=== PATIENT | male | born 1960 | race Hispanic/Latino ===

== ENCOUNTER 2020-12-03 07:48 | Observation (INO) | payer OTHER ==
--- NOTE | 2020-12-03 08:46 | RAD REPORT ---
EXAM DESCRIPTION: CT - Ct Stroke Brain Wo Cont - 12/03/2020 8:35 am CLINICAL HISTORY: APHASIA COMPARISON: No comparisons TECHNIQUE: Axial 5 millimeter thick images of the head were obtained without IV contrast. All CT scans are performed using dose optimization technique as appropriate and may include automated exposure control or mA/KV adjustment according to patient size. FINDINGS: No intracranial hemorrhage, mass, or cerebral edema. No acute peripheral cortical based in farction identified. Approximately 3 x 1 centimeter sized area of diminished attenuation is present i nvolving the left-side head of the caudate and lentiform nucleus. There is extension into a small por tion of the deep periventricular white matter of the left frontal lobe and involving the posterior as pect of the external capsule and subcortical tissue at the insular cortex. Infarction in this region could trigger aphasia No other areas of infarction suspected. Patient has no significant degree of atrophy or chronic ische michael change. A few arterial calcifications are present. No extra-axial fluid collections. Jackson matter -white matter differentiation is preserved. Visualized portions of the mastoid air cells, paranasal sinuses, and orbits are unremarkable. Findings telephoned to Dr. Maier 8:42 a.m. IMPRESSION: Subacute nonhemorrhagic infarction involving the left basal ganglia, posterior aspect of the internal and external capsules, and a small amount of deep periventricular white matter left fro ntal lobe. An infarction in this region could trigger aphasia.
[2020-12-03 08:54] LABS: Absolute Lymphocytes (CBC) 2.1 K/uL (0.7-4.9); Basophils % 0.8 % (0-1.3); Hematocrit 40.2 % (39.6-49.0); RBC Red Blood Cell Count 4.66 M/uL (4.33-5.43)
[2020-12-03 09:02] LABS: Protime INR 0.98
--- NOTE | 2020-12-03 09:22 | ER ---
Nurse's Notes [facility] Name: Aime Huffman Age: 60 yrs Sex: Male : 1960 Arrival Date: 12/03/2020 Time: 07:50 Bed 6 Private MD: Diagnosis: Subacute nonhemorrhagic infaction: left basal ganglia, posterior internal/external capsule, left frontal lobe Presentation: 12/03 08:06 Chief complaint: Patient states: "I think I might have had a stroke yesterday. I was jd3 sitting at the computer and couldn't remember my passwords and was having a hard time speaking and remembering things. It started around this time yesterday.". Coronavirus screen: At this time, the client does not indicate any symptoms associated with coronavirus-19. Ebola Screen: Patient negative for fever greater than or equal to 101.5 degrees Fahrenheit, and additional compatible Ebola Virus Disease symptoms. Initial Sepsis Screen: Does the patient meet any 2 criteria? No. Patient's initial sepsis screen is negative. Does the patient have a suspected source of infection? No. Patient's initial sepsis screen is negative. Risk Assessment: Do you want to hurt yourself or someone else? Patient reports no desire to harm self or others. Onset of symptoms was December 02, 2020. 08:06 Method Of Arrival: Ambulatory j 08:06 Acuity: ANTOINETTE 2 jd3 Historical: - Allergies: 08:09 No Known Allergies; jd3 - Home Meds: 08:09 Metformin Oral [Active]; Bystolic oral oral [Active]; jd3 - PMHx: 08:09 Diabetes - NIDDM; Hypertension; jd3 - Immunization history:: Adult Immunizations up to date. - Social history:: Smoking status: Patient denies any tobacco usage or history of. Screenin:12 Abuse screen: Denies threats or abuse. Nutritional screening: No deficits noted. jd3 Tuberculosis screening: No symptoms or risk factors identified. VAN Screening: Arm Drift: Patient shows no arm weakness. Patient is VAN negative. Fall Risk Ambulatory Aid- None/Bed Rest/Nurse Assist (0 pts). Gait- Normal/Bed Rest/Wheelchair (0 pts) Mental Status- Oriented to own ability (0 pts). Total Hamilton Fall Scale indicates No Risk (0-24 pts). 08:13 The patient has not been NPO before screening. The patient is currently on the jd3 following diet: regular The patient is alert, able to follow commands. The patient does not exhibit slurred or garbled speech The patient is not exhibiting difficulty speaking. The patient does not exhibit difficulty understanding words. The patient is able to swallow own secretions with no drooling or need for suction. Patient tolerated one teaspoon of water. No drooling, immediate coughing, gurgling, or clearing of the throat was noted. The patient tolerated 90mL of water. No drooling, immediate coughing, gurgling, or clearing of the throat was noted. The patient passed the bedside swallow screening. Oral medications may be given as ordered. Contact Physician for further diet orders. Provider notified of bedside swallow screening results: Alberto Maier MD. Assessment: 08:09 General: Appears in no apparent distress. comfortable, Behavior is calm, cooperative, jd3 appropriate for age, anxious. Pain: Denies pain. Neuro: Level of Consciousness is awake, alert, obeys commands, Oriented to person, place, time, situation, Cashier Checker are equal bilaterally Moves all extremities. Full function Gait is steady, Speech is normal, Facial symmetry appears normal, Intact Reports problem remembering things, feels like he is slurring his speech.. Cardiovascular: Denies chest pain, Capillary refill < 3 seconds Patient's skin is warm and dry. Respiratory: Airway is patent Respiratory effort is even, unlabored, Respiratory pattern is regular, symmetrical. GI: No signs and/or symptoms were reported involving the gastrointestinal system. : No signs and/or symptoms were reported regarding the genitourinary system. EENT: No signs and/or symptoms were reported regarding the EENT system. Derm: Skin is intact, Skin is dry, Skin is normal, Skin temperature is warm. Musculoskeletal: Circulation, motion, and sensation intact. Range of motion: intact in all extremities. 09:15 Reassessment: Patient appears in no apparent distress at this time. Patient and/or jd3 family updated on plan of care and expected duration. Pain level reassessed. Patient is alert, oriented x 3, equal unlabored respirations, skin warm/dry/pink. 10:18 Reassessment: Patient appears in no apparent distress at this time. Patient and/or jd3 family updated on plan of care and expected duration. Pain level reassessed. Patient is alert, oriented x 3, equal unlabored respirations, skin warm/dry/pink. 11:16 Reassessment: Patient appears in no apparent distress at this time. No changes from [facility] previously documented assessment. Patient and/or family updated on plan of care and expected duration. Pain level reassessed. Patient is alert, oriented x 3, equal unlabored respirations, skin warm/dry/pink. awaiting admission. 12:17 Reassessment: Patient appears in no apparent distress at this time. No changes from [facility] previously documented assessment. Patient and/or family updated on plan of care and expected duration. Pain level reassessed. Patient is alert, oriented x 3, equal unlabored respirations, skin warm/dry/pink. 13:15 Reassessment: Patient appears in no apparent distress at this time. No changes from [facility] previously documented assessment. Patient and/or family updated on plan of care and expected duration. Pain level reassessed. Patient is alert, oriented x 3, equal unlabored respirations, skin warm/dry/pink. Patient denies pain at this time. 14:08 Reassessment: Patient appears in no apparent distress at this time. Patient and/or [facility] family updated on plan of care and expected duration. Pain level reassessed. Patient is alert, oriented x 3, equal unlabored respirations, skin warm/dry/pink. charting continued in [facility]. 14:45 Reassessment: Unsuccessful attempt to call report to admitting nurse. Nurse to call aa5 back for report. . Vital Signs: 08:00 BP 150 / 80; Pulse 58; Resp 16; Temp 98.9(O); Pulse Ox 97% on R/A; Weight 88.45 kg; em1 Height 5 ft. 10 in. (177.80 cm); Pain 0/10; 10:18 BP 160 / 76; Pulse 55; Resp 17 S; Pulse Ox 97% on R/A; jd3 11:17 BP 146 / 78; Pulse 53; Resp 16 S; Pulse Ox 96% on R/A; jd3 12:17 BP 150 / 75; Pulse 52; Resp 18 S; Pulse Ox 97% on R/A; jd3 13:16 BP 147 / 75; Pulse 56; Resp 16 S; Pulse Ox 99% on R/A; jd3 14:08 BP 143 / 75; Pulse 51; Resp 17 S; Pulse Ox 97% on R/A; jd3 15:07 BP 158 / 78; Pulse 55; Resp 16 S; Pulse Ox 97% on R/A; jd3 08:00 Body Mass Index 27.98 (88.45 kg, 177.80 cm) em1 NIH Stroke Scale Scores: 08:12 NIHSS Score: 0 jd3 ED Course: 07:50 Patient arrived in ED. ag5 07:56 Alberto Maier MD is Attending Physician. kdr 08:00 Damian Toney RN is Primary Nurse. jd3 08:08 Triage completed. jd3 08:09 Arm band placed on. jd3 08:12 Patient has correct armband on for positive identification. Bed in low position. Call jd3 light in reach. Side rails up X 1. Pulse ox on. NIBP on. 08:34 CT Stroke Brain w/o Contrast In Process Unspecified. EDMS 08:37 Stroke CXR 1 View In Process Unspecified. EDMS 08:48 Inserted saline lock: 20 gauge in right antecubital area, using aseptic technique. jd3 Blood collected. 08:49 EKG done, by ED staff, reviewed by Alberto Maier MD. em1 09:18 Jamison Wyatt MD is Hospitalizing Provider. kdr 09:42 Augie Prater is Hospitalizing Provider. kdr 14:15 No provider procedures requiring assistance completed. Patient admitted, IV remains in jd3 place. 15:00 Repeat troponin drawn and sent to lab. aa5 Administered Medications: 10:17 Drug: foLIC Acid 1 mg Route: PO; jd3 11:15 Follow up: Response: No adverse reaction jd3 10:18 Drug: Aspirin 325 mg Route: PO; jd3 11:15 Follow up: Response: No adverse reaction jd3 Outcome: 09:21 Decision to Hospitalize by Provider. kdr 14:15 Admitted to ER Hold. Please see [facility] for further documentation. jd3 14:15 Condition: stable 14:15 Instructed on the need for admit. 15:31 Admitted to Med/surg room 415, Report called to Tavo OCONNOR jd3 15:47 Patient left the ED. jd3 NIH Stroke Scale - NIH Stroke Score Date: 12/03/2020 Time: 08:12 Total Score = 0 1a. Level of Consciousness (LOC) - 0(Alert) 1b. Level of Consciousness (LOC) (Year \\T\\ Age) - 0(Both) 1c. LOC Commands (Open \\T\\ Closes Eyes/Automatic Tire Tester) - 0(Both) 2. Best Gaze (Lateral Gaze Paresis) - 0(Normal) 3. Visual Field Loss - 0(No visual loss) 4. Facial Palsy - 0(Normal) 5a. Left Arm: Motor (10-second hold) - 0(No drift) 5b. Right Arm: Motor (10-second hold) - 0(No drift) 6a. Left Leg: Motor (5-second hold - always test supine) - 0(No drift) 6b. Right Leg: Motor (5-second hold - always test supine) - 0(No drift) 7. Limb Ataxia (finger/nose \\T\\ heel/longoria - test with eyes open) - 0(Absent) 8. Sensory Loss (pinprick arms/legs/face) - 0(Normal) 9. Best Language: Aphasia (description/naming/reading) - 0(No aphasia) 10. Dysarthria (speech clarity - read or repeat words) - 0(Normal) 11. Extinction and Inattention (visual/tactile/auditory/spatial/personal) - 0(No abnormality) Initials: jd3 Signatures: Dispatcher [employer] EDMS Alberto Maier MD MD kdr Martinez, Eric em1 Rose Mary Jesus, RN RN aa5 Damian Toney RN RN jd3 Laura Hamlin 5
--- NOTE | 2020-12-03 09:22 | EDPHYS ---
Physician Documentation [facility] Name: Amie Huffman Age: 60 yrs Sex: Male : 1960 Arrival Date: 12/03/2020 Time: 07:50 Bed 6 Private MD: ED Physician Alberto Maier HPI: 12/03 10:46 This 60 yrs old Male presents to ER via Ambulatory with complaints of kdr Disoriented, Altered Mental Status, Aphasia. 10:47 The patient presents to the emergency department with a speech or higher order brain kdr function problem, aphasia, that is mild. Onset: The symptoms/episode began/occurred suddenly, yesterday, Yesterday morning. Context: occurred at home, occurred while the patient was working, The patient states that he initially was having difficulty remembering his computer passwords. Then he began to have difficulty speaking. Associated signs and symptoms: Pertinent positives: Pertinent negatives: altered mental status, chills, dizziness, fever, headache, nausea, neck stiffness, paresthesias, seizure, syncope, near-syncope, blurred vision, double vision, visual field changes, loss of vision, weakness. Severity of symptoms: At their worst the symptoms were mild in the emergency department the symptoms are unchanged. Patient's baseline: Neuro: alert and fully oriented, Motor: no deficits, Ambulation: walks without assistance, Speech: normal. Current symptoms: expressive aphasia. The patient has not experienced similar symptoms in the past. The patient has not recently seen a physician. Historical: - Allergies: 08:09 No Known Allergies; jd3 - Home Meds: 08:09 Metformin Oral [Active]; Bystolic oral oral [Active]; jd3 - PMHx: 08:09 Diabetes - NIDDM; Hypertension; jd3 - Immunization history:: Adult Immunizations up to date. - Social history:: Smoking status: Patient denies any tobacco usage or history of. ROS: 10:47 Constitutional: Negative for fever, chills, and weight loss, Eyes: Negative for injury, kdr pain, redness, and discharge, ENT: Negative for injury, pain, and discharge, Neck: Negative for injury, pain, and swelling, Cardiovascular: Negative for chest pain, palpitations, and edema, Respiratory: Negative for shortness of breath, cough, wheezing, and pleuritic chest pain, Abdomen/GI: Negative for abdominal pain, nausea, vomiting, diarrhea, and constipation, Back: Negative for injury and pain, : Negative for injury, bleeding, discharge, and swelling, MS/Extremity: Negative for injury and deformity, Skin: Negative for injury, rash, and discoloration, Psych: Negative for depression, anxiety, suicide ideation, homicidal ideation, and hallucinations, Allergy/Immunology: Negative for hives, rash, and allergies, Endocrine: Negative for neck swelling, polydipsia, polyuria, polyphagia, and marked weight changes, Hematologic/Lymphatic: Negative for swollen nodes, abnormal bleeding, and unusual bruising. 10:47 Neuro: Positive for speech changes, Negative for altered mental status, dizziness, gait disturbance, headache, hearing loss, loss of consciousness, numbness, seizure activity, syncope, near syncope, tingling, tremor, visual changes, weakness. Exam: 09:22 ECG was reviewed by the Attending Physician. kdr 10:47 Constitutional: This is a well developed, well nourished patient who is awake, alert, kdr and in no acute distress. Head/Face: Normocephalic, atraumatic. Eyes: Pupils equal round and reactive to light, extra-ocular motions intact. Lids and lashes normal. Conjunctiva and sclera are non-icteric and not injected. Cornea within normal limits. Periorbital areas with no swelling, redness, or edema. Neck: Trachea midline, no thyromegaly or masses palpated, and no cervical lymphadenopathy. Supple, full range of motion without nuchal rigidity, or vertebral point tenderness. No Meningismus. Chest/axilla: Normal chest wall appearance and motion. Nontender with no deformity. No lesions are appreciated. Cardiovascular: Regular rate and rhythm with a normal S1 and S2. No gallops, murmurs, or rubs. Normal PMI, no JVD. No pulse deficits. Respiratory: Lungs have equal breath sounds bilaterally, clear to auscultation and percussion. No rales, rhonchi or wheezes noted. No increased work of breathing, no retractions or nasal flaring. Abdomen/GI: Soft, non-tender, with normal bowel sounds. No distension or tympany. No guarding or rebound. No evidence of tenderness throughout. Back: No spinal tenderness. No costovertebral tenderness. Full range of motion. Skin: Warm, dry with normal turgor. Normal color with no rashes, no lesions, and no evidence of cellulitis. MS/ Extremity: Pulses equal, no cyanosis. Neurovascular intact. Full, normal range of motion. Psych: Awake, alert, with orientation to person, place and time. Behavior, mood, and affect are within normal limits. 10:47 Neuro: Exam negative for Orientation: is normal, Mentation: is normal, appropriate for stated age, Memory: appropriate for stated age, Cranial nerves: no acute changes, Speech is Expressive aphasia. Cerebellar function: is grossly normal, is grossly normal based on the patient's age, Motor: is normal, Sensation: is normal, Gait: appropriate for age. Vital Signs: 08:00 BP 150 / 80; Pulse 58; Resp 16; Temp 98.9(O); Pulse Ox 97% on R/A; Weight 88.45 kg; em1 Height 5 ft. 10 in. (177.80 cm); Pain 0/10; 10:18 BP 160 / 76; Pulse 55; Resp 17 S; Pulse Ox 97% on R/A; jd3 11:17 BP 146 / 78; Pulse 53; Resp 16 S; Pulse Ox 96% on R/A; jd3 12:17 BP 150 / 75; Pulse 52; Resp 18 S; Pulse Ox 97% on R/A; jd3 13:16 BP 147 / 75; Pulse 56; Resp 16 S; Pulse Ox 99% on R/A; jd3 14:08 BP 143 / 75; Pulse 51; Resp 17 S; Pulse Ox 97% on R/A; jd3 15:07 BP 158 / 78; Pulse 55; Resp 16 S; Pulse Ox 97% on R/A; jd3 08:00 Body Mass Index 27.98 (88.45 kg, 177.80 cm) em1 NIH Stroke Scale Scores: 08:12 NIHSS Score: 0 jd3 MDM: 09:21 Patient medically screened. kdr 10:52 Data reviewed: vital signs, nurses notes, lab test result(s), radiologic studies. kdr Counseling: I had a detailed discussion with the patient and/or guardian regarding: the historical points, exam findings, and any diagnostic results supporting the discharge/admit diagnosis, lab results, radiology results, the need for further work-up and treatment in the hospital. Physician consultation: Augie Prater regarding admission, patient's condition, and will see patient in inpatient room, shortly. Physician consultation: Urbano Patel MD regarding consult, patient's condition, and will see patient in inpatient room, later today, would like medications started, Aspirin, folic acid and statin. 12/03 08:21 Order name: Basic Metabolic Panel; Complete Time: 09:17 kdr 12/03 08:21 Order name: CBC with Diff; Complete Time: 09:13 kdr 12/03 08:21 Order name: Protime (+inr); Complete Time: 09:13 kdr 12/03 08:21 Order name: Ptt, Activated; Complete Time: 09:13 kdr 12/03 08:21 Order name: ETOH Level; Complete Time: 09:14 kdr 12/03 08:21 Order name: UDS [facility] 12/03 08:21 Order name: CT Stroke Brain w/o Contrast; Complete Time: 09:14 kdr 12/03 08:21 Order name: Stroke CXR 1 View [facility] 12/03 08:34 Order name: Glucose, Ancillary Testing [facility] 12/03 11:44 Order name: SARS-COV-2 RT PCR [facility] 12/03 14:49 Order name: RAD [facility] 12/03 15:19 Order name: US [facility] 12/03 15:26 Order name: Troponin I [facility] 12/03 08:21 Order name: EKG; Complete Time: 08:22 kdr 12/03 08:21 Order name: Accucheck; Complete Time: 08:27 kdr 12/03 08:21 Order name: Cardiac monitoring; Complete Time: 08:47 kdr 12/03 08:21 Order name: EKG - Nurse/Tech; Complete Time: 08:48 kdr 12/03 08:21 Order name: IV Saline Lock; Complete Time: 08:48 kdr 12/03 08:21 Order name: Labs collected and sent; Complete Time: 08:47 kdr 12/03 08:21 Order name: NPO; Complete Time: 08:27 kdr 12/03 08:21 Order name: O2 Per Protocol; Complete Time: 08:27 kdr 12/03 08:21 Order name: O2 Sat Monitoring; Complete Time: 08:27 kdr 12/03 08:21 Order name: Stroke Swallow Screen; Complete Time: 08:27 kdr 12/03 10:53 Order name: CONS Physician Consult EDMS EC:22 Rate is 58 beats/min. Rhythm is regular, Sinus bradycardia with No ectopy. QRS [place] is kdr Normal. UT interval is normal. QRS interval is normal. QT interval is normal. Clinical impression: NSR w/ Non-specific ST/T Changes and Sinus bradycardia. Administered Medications: 10:17 Drug: foLIC Acid 1 mg Route: PO; jd3 11:15 Follow up: Response: No adverse reaction jd3 10:18 Drug: Aspirin 325 mg Route: PO; jd3 11:15 Follow up: Response: No adverse reaction jd3 Disposition: 12/03/20 09:21 Hospitalization ordered by Augie Prater for Observation. Preliminary diagnosis is Subacute nonhemorrhagic infaction: left basal ganglia, posterior internal/external capsule, left frontal lobe. - Bed requested for Telemetry/MedSurg (observation). - Status is Observation. jd3 - Condition is Fair. - Problem is new. - Symptoms are unchanged. NIH Stroke Scale - NIH Stroke Score Date: 12/03/2020 Time: 08:12 Total Score = 0 1a. Level of Consciousness (LOC) - 0(Alert) 1b. Level of Consciousness (LOC) (Year \T\ Age) - 0(Both) 1c. LOC Commands (Open \T\ Closes Eyes/Housing Relocation) - 0(Both) 2. Best Gaze (Lateral Gaze Paresis) - 0(Normal) 3. Visual Field Loss - 0(No visual loss) 4. Facial Palsy - 0(Normal) 5a. Left Arm: Motor (10-second hold) - 0(No drift) 5b. Right Arm: Motor (10-second hold) - 0(No drift) 6a. Left Leg: Motor (5-second hold - always test supine) - 0(No drift) 6b. Right Leg: Motor (5-second hold - always test supine) - 0(No drift) 7. Limb Ataxia (finger/nose \T\ heel/longoria - test with eyes open) - 0(Absent) 8. Sensory Loss (pinprick arms/legs/face) - 0(Normal) 9. Best Language: Aphasia (description/naming/reading) - 0(No aphasia) 10. Dysarthria (speech clarity - read or repeat words) - 0(Normal) 11. Extinction and Inattention (visual/tactile/auditory/spatial/personal) - 0(No abnormality) Initials: jd3 Signatures: Dispatcher [employer] EDMS Imelda Mclean, RN RN Alberto Maier MD MD [facility] Erika Flores, RN Damian Stephens RN RN jd3 Corrections: (The following items were deleted from the chart) 09:42 09:21 Hospitalization Ordered by Jamison Wyatt MD for Observation. Preliminary kdr diagnosis is Subacute nonhemorrhagic infaction: left basal ganglia, posterior internal/external capsule, left frontal lobe. Bed requested for Telemetry/MedSurg (observation). Status is Observation. Condition is Fair. Problem is new. Symptoms are unchanged. kdr 10:17 09:44 CORONAVIRUS+MR.LAB.BRZ ordered. EDKY EDMS 14:21 09:42 12/03/2020 09:21 Hospitalization Ordered by Augie Prater for iw Observation. Preliminary diagnosis is Subacute nonhemorrhagic infaction: left basal ganglia, posterior internal/external capsule, left frontal lobe. Bed requested for Telemetry/MedSurg (observation). Status is Observation. Condition is Fair. Problem is new. Symptoms are unchanged. kdr 14:40 14:21 12/03/2020 09:21 Hospitalization Ordered by Augie Prater for dw Observation. Preliminary diagnosis is Subacute nonhemorrhagic infaction: left basal ganglia, posterior internal/external capsule, left frontal lobe. Bed requested for [facility] ER HOLD. Status is Observation. Condition is Fair. Problem is new. Symptoms are unchanged. 14:41 14:40 12/03/2020 09:21 Hospitalization Ordered by Augie Prater for dw Observation. Preliminary diagnosis is Subacute nonhemorrhagic infaction: left basal ganglia, posterior internal/external capsule, left frontal lobe. Bed requested for Telemetry/MedSurg (observation). Status is Observation. Condition is Fair. Problem is new. Symptoms are unchanged. 15:47 14:41 12/03/2020 09:21 Hospitalization Ordered by Augie Prater for jd3 Observation. Preliminary diagnosis is Subacute nonhemorrhagic infaction: left basal ganglia, posterior internal/external capsule, left frontal lobe. Bed requested for Telemetry/MedSurg (observation). Status is Observation. Condition is Fair. Problem is new. Symptoms are unchanged.
--- NOTE | 2020-12-03 09:25 | RAD REPORT ---
EXAM DESCRIPTION: RAD - Chest Single View - 12/03/2020 8:40 am CLINICAL HISTORY: AMS/Speech difficulty, Stroke protocol chest film COMPARISON: Portable June 2011 TECHNIQUE: AP portable chest image was obtained 12/03/2020 8:40 am . FINDINGS: Lungs are clear. Heart and vasculature are normal. No measurable pleural effusion and no p neumothorax. No acute bony abnormality seen. No acute aortic findings suspected. IMPRESSION: No acute cardiopulmonary process. No significant change from comparison study.
[2020-12-03] MEDS ORDERED: ASPIRIN 325 MG TAB ONE (10:23)
[2020-12-03] MEDS ORDERED: FOLIC ACID 1 MG TABLET ONE (10:23)
--- NOTE | 2020-12-03 11:13 | P.HP ---
Certification for Inpatient Patient admitted to: Observation Practitioner: I am a practitioner with admitting privileges, knowledge of patient current condition, hospital course, and medical plan of care. Services: Services provided to patient in accordance with Admission requirements found in Title 42 Section 412.3 of the Code of Federal Regulations Patient History Date of Service: 12/03/20 Reason for admission: Slurred speech History of Present Illness: 60-year-old gentleman with a history of hypertension and diabetes presented to the emergency department with a complaint of sudden onset of slurred speech, forgetfulness and difficulty finding words. Patient denied any headache. He denied any weakness in his arms or legs. Stroke protocol was initiated in the ED. CT head done in the ED reported subacute infarct in the left basal ganglia, posterior aspect of the internal and external capsules. Patient stated his speech was better and almost resolved by the time I saw him in the ED for ex amination. Chest x-ray shows no acute changes. EKG demonstrated sinus bradycardia, no ischemic changes. Dr. Patel was informed who recommended stroke medical management. Patient is placed under observation for further monitoring and management. - Past Medical/Surgical History Diabetic: Yes -: Hypertension -: Diabetes - Family History Mother -: Diabetes - Social History Smoking Status: Never smoker Alcohol use: Yes CD- Drugs: No Place of Residence: Home Review of Systems Other: Patient denied any visual disturbance, he denied any trouble swallowing, he denied any chest pain. Except as documented, all other systems reviewed and negative. Physical Examination - Physical Exam General: Alert, In no apparent distress, Oriented x3 HEENT: Atraumatic, Normocephalic, PERRLA, Mucous membr. moist/pink, EOMI Neck: Supple, JVD not distended Respiratory: Clear to auscultation bilaterally, Normal air movement Cardiovascular: No edema, Regular rate/rhythm, Normal S1 S2, No murmurs Capillary refill: <2 Seconds Gastrointestinal: Normal bowel sounds, Soft and benign, Non-distended, No tenderness Musculoskeletal: No swelling, No tenderness Integumentary: No rashes, No erythema Neurological: Normal speech, Normal strength at 5/5 x4 extr, Cranial nerves 3-12 intact Lymphatics: No axilla or inguinal lymphadenopathy - Studies Laboratory Data (last 24 hrs) 12/03/20 08:45: PT 11.3, INR 0.98, APTT 30.1 12/03/20 08:45: WBC 5.40, Hgb 13.6, Hct 40.2, Plt Count 212 12/03/20 08:45: Sodium 141, Potassium 4.0, BUN 15, Creatinine 0.89, Glucose 169 H Assessment and Plan - Problems (Diagnosis) (1) Acute CVA (cerebrovascular accident) Current Visit: Yes Status: Acute (2) Hypertension Current Visit: Yes Status: Acute (3) DM type 2 (diabetes mellitus, type 2) Current Visit: Yes Status: Acute - Plan Place under observation. Obtain MRI Obtain echocardiogram and carotid Doppler Check lipid profile Start aspirin 162 mg daily. Folic acid. Lipitor 40 mg daily. Speech therapy to evaluate. PT to evaluate. Neurology consult. - Advance Directives Does patient have a Living Will: No Does patient have a Durable POA for Healthcare: No
[2020-12-03] MEDS: NA CHLORIDE 0.9% 1,000 ML IV SCH (14:05)
[2020-12-03] MEDS ORDERED: ONDANSETRON 4 MG/2 ML VIAL IV PRN (14:05)
[2020-12-03] MEDS: INSULIN -REGULAR HUMAN 50 UNIT/0.5 ML ML SQ SCH ×3 (14:05→21:00)
[2020-12-03] MEDS ORDERED: ACETAMINOPHEN 500 MG TAB PO PRN (14:05)
--- NOTE | 2020-12-03 14:46 | RAD REPORT ---
EXAM DESCRIPTION: Chastity Winkler And Abdirahman (2 Views)12/03/2020 2:22 pm CLINICAL HISTORY: CVA COMPARISON: 2010 FINDINGS: The lungs appear clear of acute infiltrate. The heart is normal size. Calcified granuloma right lung IMPRESSION: No acute abnormalities displayed
--- NOTE | 2020-12-03 15:18 | RAD REPORT ---
EXAM DESCRIPTION: USCarotid Artery Bilateral12/03/2020 3:01 pm CLINICAL HISTORY: cva COMPARISON: None FINDINGS: The velocity of the right internal carotid artery equals 86 cm/sec. The right ICA/CCA rati o.9 The velocity of the left internal carotid artery equals 70 cm/sec. The left ICA/CCA ratio .7 Mild plaque is present within the carotid arteries. The vertebral arteries demonstrate antegrade flow IMPRESSION: Mild plaque within the carotid arteries without evidence of a hemodynamically significan t stenosis NASCET criteria used. Mild 0-49% stenosis Moderate 50-69% stenosis Severe 70-99% stenosis
[2020-12-03] MEDS ORDERED: INFLUENZA VACCINE (for 3y+) 0.5 ML DOSE IMVAC ONE (17:00)
--- NOTE | 2020-12-03 20:04 | CON ---
Reason For Consultation: Consultation called because of stroke. History Of Present Illness: Mr. Huffman is a 60-year-old right-handed patient who was COVID p ositive and hypertension, diabetes, and presented to [facility] early on 12/03/2020, with del valle dden onset of slurred speech, forgetfulness and difficulty of finding words. Symptom onset was well beyond the window for tissue plasminogen activator and his CT scan of the head did identify a subacut e infarct in the left basal ganglia including the posterior aspect of the internal capsule and photograph developer al capsules. By the time patient came to [facility], his symptoms had largely resolved desp ite his CT scan findings. This included slurred speech, some difficulty of finding words and problem s with his orientation. The patient was admitted for stroke workup. He was placed on aspirin 81 mg daily, folic acid 1 mg daily, Lovenox 40 mg subcutaneously daily, Lipitor 40 mg at bedtime. His bloo d sugars were controlled. His carotid Doppler study did identify mild plaque in the carotid arteries without evidence of hemodynamically significant stenosis. Brain MRI with MRA of the head and neck a re pending and his echocardiogram is pending. Past Medical History: As indicated. Social History: Drinks alcohol regularly. Denies tobacco use or IV drug use. Family History: Positive for diabetes mellitus in mother. Social History: None. Review of Systems: He denies any recent fevers, chills, nausea, vomiting, myalgias, arthralgias, headache, weight change , rash, any psychiatric issues or gastrointestinal issues. Physical Examination: Vital Signs: Blood pressure 167/79, pulse 56, respiratory rate 16, temperature 97.6, O2 saturation 9 9% room air. Weight 194 pounds. General: The patient is resting comfortably in bed. He is in no acute distress. HEENT: He is normocephalic, atraumatic. Sclerae anicteric. Oropharynx is pink and moist. Neck: Supple. Chest: Clear. Heart: Regular. Extremities: Show no edema, cyanosis, or clubbing. Neurological: He is alert and oriented to situation and time. He follows commands appropriately. H e has no cranial nerve deficits. No weakness in the upper and lower extremities with full strength 5 /5. Sensation intact in the upper and lower extremities. Coordination intact in the upper and lower extremities. His reflexes are symmetric at around 2+ bilaterally. His gait, he has good stance and stride. He was cleared by speech with bedside swallowing being negative. His NIH Stroke Scale is 0 at this point. Laboratory Studies: Complete blood count with differential is completely normal. Coagulation panel is normal. Chemistries show glucose elevated ranging 115 to 177. Chloride slightly elevated at 108. Troponin 1 is negative. Calcium normal at 9.4. Toxicology screen is negative. He is COVID-19 pos itive. Assessment: Mr. Huffman is a 60-year-old patient with multiple stroke risk factors including COVID pos itivity, hypertension, diabetes mellitus, who has had a subacute stroke in the left basal ganglia inc luding the internal and external capsules and he does have a small amount of big periventricular whit e matter ischemic changes in the left frontal lobe. Despite the stroke, he has clinically returned t o normal. Plan: 1.Aspirin 81 mg daily, folic acid 1 mg daily. He is going to continue Lipitor 40 mg at bedtime. Co ntinue Lovenox for DVT prophylaxis. 2.We will follow up the patient's brain MRI with MRA of head and neck. 3.He was instructed on the factors to reduce additional strokes such as changes in diet, hydration, exercise, and rest. After his complete workup and after discharge, he should follow up in Dr. Patel's clinic 1 month later. ROHAN/ALISE Voice ID: [id number] Report ID: [id number]
[2020-12-03] MEDS ORDERED: ATORVASTATIN 40 MG TAB PO SCH (21:00)
[2020-12-04 03:23] LABS: Barbiturates NEGATIVE (NEGATIVE); Benzodiazepines NEGATIVE (NEGATIVE); Cocaine NEGATIVE (NEGATIVE); METHAMPHETAM NEGATIVE (NEGATIVE); Methadone NEGATIVE (NEGATIVE); Opiates NEGATIVE (NEGATIVE); Phencyclidine NEGATIVE (NEGATIVE); THC Cannibis NEGATIVE (NEGATIVE)
[2020-12-04] MEDS: NA CHLORIDE 0.9% 1,000 ML IV SCH (03:29)
[2020-12-04 03:54] LABS: Protime INR 0.99
[2020-12-04 03:54] LABS: Absolute Lymphocytes (CBC) 2.4 K/uL (0.7-4.9); Basophils % 0.8 % (0-1.3); Hematocrit 38.4 % (39.6-49.0); Lymphocytes % 50.4 % (15.3-44.8); MPV 8.2 fL (7.6-11.3); RBC Red Blood Cell Count 4.37 M/uL (4.33-5.43)
[2020-12-04 04:23] LABS: Magnesium 2.4 mg/dL (1.8-2.4); Phosphorus 3.5 mg/dL (2.5-4.9); Potassium 4.3 mmol/L (3.5-5.1); Thyroid Stimulating Hormone 1.27 uIU/mL (0.360-3.740)
[2020-12-04] MEDS: INSULIN -REGULAR HUMAN 50 UNIT/0.5 ML ML SQ SCH ×3 (07:30→16:30)
[2020-12-04] MEDS ORDERED: FOLIC ACID 1 MG TABLET PO SCH (09:00)
[2020-12-04] MEDS ORDERED: ASPIRIN EC 81 MG TAB PO SCH (09:00)
[2020-12-04] MEDS ORDERED: ENOXAPARIN 40 MG/0.4 ML SQ SCH (09:00)
--- NOTE | 2020-12-04 09:48 | RAD REPORT ---
EXAM DESCRIPTION: MRI - Brain W/Wo Cont - 12/04/2020 9:15 am CLINICAL HISTORY: Acute CVA Headache, drowsiness, CVA symptomology COMPARISON: MRA Head Wo Cont dated 12/04/2020; Ct Stroke Brain Wo Cont dated 12/03/2020; Carotid Arter y Bilateral dated 12/03/2020 TECHNIQUE: Multi-sequence, multiplanar MR imaging of the brain was performed with contrast. FINDINGS: No intracranial hemorrhage, hydrocephalus, or extra-axial fluid collection. No edema or sh ift of midline structures. No intracranial mass. 21 x 14 mm acute nonhemorrhagic CVA is seen in the l eft basal ganglia. Additional smaller 6 x 5 mm nonhemorrhagic acute CVA is seen along the more golf professional ior aspect of the left basal ganglia/external capsule as well. The midline structures are normally formed. Mastoid air cells and paranasal sinuses are clear. Post-contrast images show no abnormal enhancement to suggest tumor or infection. IMPRESSION: Nonhemorrhagic left basal ganglia acute CVA is as detailed, largest measuring 21 x 14 mm . No pathologic post-contrast enhancement suspected.
--- NOTE | 2020-12-04 09:54 | RAD REPORT ---
EXAM DESCRIPTION: MRI - MRA Neck W/Wo Cont - 12/04/2020 9:16 am CLINICAL HISTORY: Acute CVA Headache, drowsiness, CVA COMPARISON: MRA Head Wo Cont dated 12/04/2020; Ct Stroke Brain Wo Cont dated 12/03/2020; Carotid Arter y Bilateral dated 12/03/2020 FINDINGS: Contrast enhance 2D [id number] MR angiography of the neck vessels was performed. A left aortic arch is noted. Both subclavian arteries and common carotid arteries are widely patent. Mild narrowing of both carotid bulbs is seen without a significant carotid stenosis identified. Both vertebral arteries are patent. There is mild atheromatous narrowing of the distal left vertebral lakeisha ry. IMPRESSION: No significant carotid stenosis is identified.
[2020-12-04 10:52] VITALS: O2SAT 97
--- NOTE | 2020-12-04 11:41 | RAD REPORT ---
EXAM DESCRIPTION: MRI - MRA Head Wo Cont - 12/04/2020 9:16 am CLINICAL HISTORY: Acute CVA CVA COMPARISON: Ct Stroke Brain Wo Cont dated 12/03/2020 FINDINGS: 3D noncontrast [id number] MR angiography of the [place] was performed. No aneurysm, flow-limiting stenosis or vascular malformation is seen. Mild narrowing is seen of the d istal left vertebral artery. The visualized dural venous sinuses appear patent. IMPRESSION: No significant flow abnormality of the [place] is identified.
--- NOTE | 2020-12-04 11:46 | P.DS ---
Admission Date: 12/03/20 Discharge Date: 12/04/20 Disposition: ROUTINE DISCHARGE Discharge Condition: FAIR Reason for Admission: Slurred speech Consultations: Neurology-Dr. Patel. - Problems (1) Acute CVA (cerebrovascular accident) Current Visit: Yes Status: Acute (2) Hypertension Current Visit: Yes Status: Acute (3) DM type 2 (diabetes mellitus, type 2) Current Visit: Yes Status: Acute (4) COVID-19 Current Visit: Yes Status: Acute Brief History of Present Illness: 60-year-old gentleman with a history of hypertension and diabetes presented to the emergency department with a complaint of sudden onset of slurred speech, forgetfulness and difficulty finding words. Patient denied any headache. He denied any weakness in his arms or legs. Stroke protocol was initiated in the ED. CT head done in the ED reported subacute infarct in the left basal ganglia, posterior aspect of the internal and external capsules. Patient stated his speech was better and almost resolved by the time I saw him in the ED for examination. Chest x-ray shows no acute changes. EKG demonstrated sinus bradycardia, no ischemic changes. Dr. Patel was informed who recommended stroke medical management. Patient was placed under observation for further monitoring and management. Noted patient tested positive for COVID 19. Hospital Course: Troponin trended came back negative. Patient neurologic symptoms resolved in the ED. MRI of the brain done confirmed acute CVA in the left basal ganglia. Carotid Doppler was unremarkable. Echocardiogram is pending. MRA of the head and may also unremarkable. Patient was placed on aspirin 162 mg daily, folic acid and Lipitor. His lipid profile is elevated, LDL up to 148. Patient has been asymptomatic during the hospitalization. He has seen evaluated by neurology-Dr. Patel recommend follow up with him in 1 month. He has been asymptomatic from the COVID 19 infection. Patient is deemed clinically stable for discharge. Vital Signs/Physical Exam: Temp Pulse Resp BP Pulse Ox 99 F 57 18 162/74 H 96 12/04/20 07:53 12/04/20 07:53 12/04/20 07:53 12/04/20 07:53 12/04/20 07:53 General: Alert, In no apparent distress, Oriented x3 HEENT: Mucous membr. moist/pink Neck: Supple, JVD not distended Cardiovascular: No edema, Regular rate/rhythm Gastrointestinal: Soft and benign, Non-distended Musculoskeletal: No swelling Integumentary: No rashes Neurological: Normal speech, Normal strength at 5/5 x4 extr Laboratory Data at Discharge: WBC 4.70 K/uL (4.3-10.9) 12/04/20 03:03 Hgb 12.8 g/dL (13.6-17.9) L 12/04/20 03:03 Hct 38.4 % (39.6-49.0) L 12/04/20 03:03 Plt Count 201 K/uL (152-406) 12/04/20 03:03 PT 11.4 SECONDS (9.5-12.5) 12/04/20 03:00 INR 0.99 12/04/20 03:00 APTT 30.1 SECONDS (24.3-36.9) 12/03/20 08:45 Sodium 145 mmol/L (136-145) 12/04/20 03:03 Potassium 4.3 mmol/L (3.5-5.1) 12/04/20 03:03 BUN 14 mg/dL (7-18) 12/04/20 03:03 Creatinine 0.93 mg/dL (0.55-1.3) 12/04/20 03:03 Glucose 135 mg/dL (74-106) H 12/04/20 03:03 Phosphorus 3.5 mg/dL (2.5-4.9) 12/04/20 03:03 Magnesium 2.4 mg/dL (1.8-2.4) 12/04/20 03:03 Troponin I < 0.02 ng/mL (0.0-0.045) 12/03/20 18:09 Triglycerides 279 mg/dL (<150) H 12/04/20 03:03 Cholesterol 247 mg/dL (<200) H 12/04/20 03:03 HDL Cholesterol 43 mg/dL (40-60) 12/04/20 03:03 Cholesterol/HDL Ratio 5.74 12/04/20 03:03 Home Medications: Metformin ER [Glucophage ER*] 1,000 mg PO DAILY 12/03/20 Nebivolol HCl [Bystolic*] 20 mg PO DAILY 12/03/20 Aspirin [Aspirin EC 81 MG] 162 mg PO DAILY #60 tablet.dr 12/04/20 Atorvastatin Calcium [Lipitor] 40 mg PO BEDTIME #30 tab 12/04/20 Clopidogrel Bisulfate [Plavix] 75 mg PO DAILY #30 tablet 12/04/20 Folic Acid 1 mg PO DAILY #30 tablet 12/04/20 New Medications: Aspirin [Aspirin EC 81 MG] 162 mg PO DAILY #60 tablet. Folic Acid 1 mg PO DAILY #30 tablet Atorvastatin Calcium [Lipitor] 40 mg PO BEDTIME #30 tab Clopidogrel Bisulfate [Plavix] 75 mg PO DAILY #30 tablet Diet: ADA Activity: Ad marcelo Followup: Guillermo Feng DO, DO [Primary Care Provider] - 1-2 Weeks Urbano Patel MD [ASSOCIATE-ACTIVE - CAN ADMIT] - (within 1 month.)
[2020-12-04 16:16] VITALS: BP 148/73; TEMP 97.1
--- NOTE | 2020-12-05 08:45 | ECHO ---
HEIGHT: 521 ft 7.84 in WEIGHT: 194 lb 15.982 oz DATE OF STUDY: 12/04/[address]: vitor garnica 2-DIMENSIONAL: YES M.MODE: YES DOPPLER: YES COLOR FLOW: YES TDS: PORTABLE: DEFINITY: BUBBLE STUDY: DIAGNOSIS: STROKE CARDIAC HISTORY: CATHERIZATION: SURGERY: PROSTHETIC VALVE: PACEMAKER: MEASUREMENTS (cm) DIASTOLIC (NORMALS) SYSTOLIC (NORMALS) IVSd 1.1 (0.6-1.2) LA Diam 4.0 (1.9-4.0) LVEF 65% LVIDd 4.3 (3.5-5.7) LVIDs 2.8 (2.0-3.5) %FS 35% LVPWd 1.2 (0.6-1.2) Ao Diam 3.0 (2.0-3.7) 2 DIMENSIONAL ASSESSMENT: RIGHT ATRIUM: NORMAL LEFT ATRIUM: NORMAL RIGHT VENTRICLE: NORMAL LEFT VENTRICLE: NORMAL TRICUSPID VALVE: NORMAL MITRAL VALVE: NORMAL PULMONIC VALVE: NORMAL AORTIC VALVE: NORMAL PERICARDIAL EFFUSION: NONE AORTIC ROOT: NORMAL LEFT VENTRICULAR WALL MOTION: NORMAL DOPPLER/COLOR FLOW: NORMAL COMMENTS: NORMAL LEFT VENTRICULAR EJECTION FRACTION 55-60%. NORMAL WALL MOTION. MILD AORTIC VALVE CALCIFICATION. NO AORTIC STENOSIS. TECHNOLOGIST: DOREEN EDGAR
== END 2020-12-04 17:55 | disposition home or self-care (01) ==
LOC: ER 07:48 → ERHOLD 10:51 → 4TH 15:28
PROVIDERS: ADMIT Internal Medicine; ATTEND Internal Medicine
DX: I63.9 Cerebral infarction, unspecified (principal); U07.1 COVID-19; I10 Essential (primary) hypertension; E11.9 Type 2 diabetes mellitus without complications; R29.700 NIHSS score 0
CPT/HCPCS: 93005; 93306; 85025 ×2; 80048 ×2; 36415; 80320; 83735; 84100; 85610 ×2; 80061; 82947 ×6; 80307 ×8; 85730; 85652; 84443; 84484 ×2; 70450; 71045; 71046; 93880; 70553; 70544; 70549; 92610; 97161; 94760 ×3; 99285; U0003; A9577; J1650; J7030 ×2; G0378 ×3

== ENCOUNTER 2021-01-05 10:57 | Observation (INO) | payer OTHER ==
[2021-01-05 11:30] LABS: Absolute Lymphocytes (CBC) 2.3 K/uL (0.7-4.9); Basophils % 0.6 % (0-1.3); Hematocrit 40.3 % (39.6-49.0); Lymphocytes % 39.1 % (15.3-44.8); MPV 8.4 fL (7.6-11.3); RBC Red Blood Cell Count 4.55 M/uL (4.33-5.43)
[2021-01-05 11:43] LABS: Protime INR 0.92
--- NOTE | 2021-01-05 11:46 | RAD REPORT ---
EXAM DESCRIPTION: CT - Ct Stroke Brain Wo Cont - 01/05/2021 11:12 am CLINICAL HISTORY: Aphasia;Confused COMPARISON: Ct Stroke Brain Wo Cont dated 12/03/2020 TECHNIQUE: Axial 5 millimeter thick images of the head were obtained without IV contrast. All CT scans are performed using dose optimization technique as appropriate and may include automated exposure control or mA/KV adjustment according to patient size. FINDINGS: No intracranial hemorrhage is present. No edema or shift of midline structures. Approximat lisa 2 x 1.5 centimeter area of decreased attenuation is present in the deep periventricular white mat ter left frontal lobe near the basal ganglia. There is ill-defined low-density that continues into th e external capsule and insular cortex. Nonhemorrhagic acute/subacute CVA is most likely. This locatio n would be a good explanation for aphasia symptoms. No other areas of suspected infarction. No cortic al edema or sulcal effacement. Ventricles are normal. No significant atrophy or chronic ischemic stewart ges identifiable. No extra-axial fluid collections. Jackson matter-white matter differentiation is pres erved. Visualized portions of the mastoid air cells, paranasal sinuses, and orbits are unremarkable. Findings telephoned to Natalio Zuniga in the emergency department 11:15 a.m. IMPRESSION: Nonhemorrhagic acute/ subacute CVA deep periventricular white matter left frontal lobe e xtending to the basal ganglia. External capsular and insular cortex involvement may be present as wel l. As clinical findings warrant, MR imaging could be performed to confirm suspected CVA and to evaluate full extent.
[2021-01-05] MEDS ORDERED: ASPIRIN 81 MG CHEWABLE TABLET ONE (11:47)
[2021-01-05] MEDS ORDERED: FOLIC ACID 5 MG/ML VIAL ONE (11:48)
--- NOTE | 2021-01-05 11:48 | EDPHYS ---
Physician Documentation [facility] Name: Aime Huffman Age: 60 yrs Sex: Male : 1960 Arrival Date: 01/05/2021 Time: 10:58 Bed 3 Private MD: Guillermo Feng H ED Physician Gerry Fritz HPI: 01/05 11:20 This 60 yrs old Male presents to ER via Ambulatory with complaints of S/S of jmm Possible Stroke. 11:20 The patient's problem is reported as weakness, in the right upper extremity, in the jmm right lower extremity. Onset: The symptoms/episode began/occurred gradually, 3 day(s) ago. Duration: The episodes are intermittent. The symptoms are alleviated by nothing. The symptoms are aggravated by nothing. Associated signs and symptoms: Pertinent negatives: chest pain, shortness of breath. This is a 60 year old male with a history of DM, HTN that presents to the ED with complaints of right sided weakness and difficulty with speech beginning this past Tuesday. patient does have a history of a recent cva 1 month ago. . Historical: - Allergies: 11:18 No Known Allergies; ca1 - PMHx: 11:18 Diabetes - NIDDM; Hypertension; ca1 - Immunization history:: Flu vaccine is up to date. - Social history:: Smoking status: Patient denies any tobacco usage or history of. ROS: 11:20 Constitutional: Negative for fever, chills, and weight loss, Cardiovascular: Negative jmm for chest pain, palpitations, and edema, Respiratory: Negative for shortness of breath, cough, wheezing, and pleuritic chest pain. 11:20 Neuro: Positive for speech changes, weakness. 11:20 All other systems are negative. Exam: 11:20 CT study not indicated or reported. Reason for not performing CT: CVA, non hemorrhagic jmm 11:20 Constitutional: This is a well developed, well nourished patient who is awake, alert, and in no acute distress. Head/Face: atraumatic. Eyes: EOMI, no conjunctival erythema appreciated ENT: Moist Mucus Membranes Neck: Trachea midline, Supple Chest/axilla: Normal chest wall appearance and motion. Cardiovascular: Regular rate and rhythm. No edema appreciated Respiratory: Normal respirations, no respiratory distress appreciated Abdomen/GI: Non distended, soft Back: Normal ROM Skin: General appearance color normal 11:20 Musculoskeletal/extremity: ROM: intact in all extremities. 11:20 Skin: Appearance: Color: normal in color. 11:20 Neuro: Orientation: is normal, Mentation: is normal, Memory: is normal. Vital Signs: 11:12 BP 141 / 69; Pulse 85; Resp 16 S; Temp 97.1(TE); Pulse Ox 96% on R/A; Weight 86.18 kg ca1 (R); Height 5 ft. 10 in. (177.80 cm) (R); Pain 0/10; 12:00 BP 137 / 80; Pulse 78; Resp 18; Pulse Ox 99% on R/A; ph 13:30 BP 141 / 72; Pulse 80; Resp 18; Pulse Ox 97% on R/A; ph 14:30 BP 122 / 64; Pulse 73; Resp 16; Pulse Ox 98% on R/A; ph 15:30 BP 140 / 68; Pulse 74; Resp 16; Pulse Ox 97% on R/A; ph 16:30 BP 132 / 70; Pulse 74; Resp 18; Pulse Ox 97% on R/A; ph 17:30 BP 129 / 70; Pulse 75; Resp 16; Temp 97.0; Pulse Ox 98% on R/A; ph 11:12 Body Mass Index 27.26 (86.18 kg, 177.80 cm) ca1 NIH Stroke Scale Scores: 11:20 NIHSS Score: 0 ph 11:20 NIHSS Score: 1 [facility] MDM: 11:13 Patient medically screened. [facility] 11:45 Data reviewed: vital signs, nurses notes. Counseling: I had a detailed discussion with [facility] the patient and/or guardian regarding: the historical points, exam findings, and any diagnostic results supporting the discharge/admit diagnosis, radiology results, the need for further work-up and treatment in the hospital. ED course: I discussed the patient with Dr. Patel and Dr. Prater whom accepted the patient for admission. TPA not given, Out of window. . 01/05 11:12 Order name: Basic Metabolic Panel [facility] 01/05 11:12 Order name: CBC with Diff; Complete Time: 11:39 [facility] 01/05 11:12 Order name: LFT's [facility] 01/05 11:12 Order name: Magnesium; Complete Time: 13:46 [facility] 01/05 11:12 Order name: NT PRO-BNP; Complete Time: 13:46 [facility] 01/05 11:12 Order name: PT-INR; Complete Time: 13:46 [facility] 01/05 11:07 Order name: CT Stroke Brain w/o Contrast; Complete Time: 11:47 ca1 01/05 11:12 Order name: Troponin (emerg Dept Use Only); Complete Time: 13:46 [facility] 01/05 11:13 Order name: Basic Metabolic Panel; Complete Time: 13:46 [facility] 01/05 11:13 Order name: Liver (Hepatic) Function; Complete Time: 13:46 [facility] 01/05 11:26 Order name: Glucose, Ancillary Testing [facility] 01/05 13:45 Order name: COVID-19 : Document "Date of Symptom Onset" if Symptomatic. 01/05 14:24 Order name: CORONAVIRUS [facility] 01/05 15:18 Order name: SARS-COV-2 RT PCR; Complete Time: 15:21 [facility] 01/05 11:12 Order name: XRAY Chest (1 view); Complete Time: 13:46 [facility] 01/05 11:12 Order name: EKG; Complete Time: 11:13 [facility] 01/05 11:12 Order name: Cardiac monitoring; Complete Time: 11:50 [facility] 01/05 11:12 Order name: EKG - Nurse/Tech; Complete Time: 11:50 [facility] 01/05 11:12 Order name: IV Saline Lock; Complete Time: 11:22 [facility] 01/05 11:12 Order name: Labs collected and sent; Complete Time: 11:22 [facility] 01/05 11:12 Order name: O2 Per Protocol; Complete Time: 11:22 [facility] 01/05 11:12 Order name: O2 Sat Monitoring; Complete Time: 11:22 [facility] 01/05 11:20 Order name: MRI - Brain Wo Cont; Complete Time: 14:08 [facility] 01/05 11:42 Order name: Echo without doppler (2D) [facility] 01/05 11:42 Order name: Carotid Artery Bilateral US; Complete Time: 13:46 [facility] Administered Medications: 11:40 Drug: Aspirin Chewable Tablet 324 mg Route: PO; ph 11:52 Follow up: Response: No adverse reaction ph 11:40 Drug: foLIC Acid 1 mg Route: IVPB; Site: right antecubital; ph 11:52 Follow up: Response: No adverse reaction; IV Status: Completed infusion ph 16:16 Not Given (Other Intervention Used): NS 0.9% 1000 ml IV at 1 bolus Per protocol; 1000 ph mL bolus Disposition: 01/06 09:45 Co-signature as Attending Physician, Gerry PEREZ I agree with the assessment and herberth plan of care. Disposition: 01/05/21 11:47 Hospitalization ordered by Augie Prater for Observation. Preliminary diagnosis is Cerebral infarction. - Bed requested for Telemetry/MedSurg (observation). - Status is Observation. ph - Condition is Stable. - Problem is new. - Symptoms are unchanged. NIH Stroke Scale - NIH Stroke Score Date: 01/05/2021 Time: 11:20 Total Score = 0 1a. Level of Consciousness (LOC) - 0(Alert) 1b. Level of Consciousness (LOC) (Year \\T\\ Age) - 0(Both) 1c. LOC Commands (Open \\T\\ Closes Eyes/Early Morning) - 0(Both) 2. Best Gaze (Lateral Gaze Paresis) - 0(Normal) 3. Visual Field Loss - 0(No visual loss) 4. Facial Palsy - 0(Normal) 5a. Left Arm: Motor (10-second hold) - 0(No drift) 5b. Right Arm: Motor (10-second hold) - 0(No drift) 6a. Left Leg: Motor (5-second hold - always test supine) - 0(No drift) 6b. Right Leg: Motor (5-second hold - always test supine) - 0(No drift) 7. Limb Ataxia (finger/nose \\T\\ heel/longoria - test with eyes open) - 0(Absent) 8. Sensory Loss (pinprick arms/legs/face) - 0(Normal) 9. Best Language: Aphasia (description/naming/reading) - 0(No aphasia) 10. Dysarthria (speech clarity - read or repeat words) - 0(Normal) 11. Extinction and Inattention (visual/tactile/auditory/spatial/personal) - 0(No abnormality) Initials: ph NIH Stroke Scale - NIH Stroke Score Date: 01/05/2021 Time: 11:20 Total Score = 1 1a. Level of Consciousness (LOC) - 0(Alert) 1b. Level of Consciousness (LOC) (Year \\T\\ Age) - 0(Both) 1c. LOC Commands (Open \\T\\ Closes Eyes/Early Morning) - 0(Both) 2. Best Gaze (Lateral Gaze Paresis) - 0(Normal) 3. Visual Field Loss - 0(No visual loss) 4. Facial Palsy - 1(Minor Paralysis) 5a. Left Arm: Motor (10-second hold) - 0(No drift) 5b. Right Arm: Motor (10-second hold) - 0(No drift) 6a. Left Leg: Motor (5-second hold - always test supine) - 0(No drift) 6b. Right Leg: Motor (5-second hold - always test supine) - 0(No drift) 7. Limb Ataxia (finger/nose \\T\\ heel/longoria - test with eyes open) - 0(Absent) 8. Sensory Loss (pinprick arms/legs/face) - 0(Normal) 9. Best Language: Aphasia (description/naming/reading) - 0(No aphasia) 10. Dysarthria (speech clarity - read or repeat words) - 0(Normal) 11. Extinction and Inattention (visual/tactile/auditory/spatial/personal) - 0(No abnormality) Initials: [facility] Signatures: Dispatcher [employer] Imelda Quan RN RN dw Anderson, Corey, MD MD cha Mickail, Joel, PA PA [facility] Lesly Rolle, ELVIN RN ph AcShira carlson RN RN ca1 Corrections: (The following items were deleted from the chart) 01/05 15:50 11:47 Hospitalization Ordered by Augie Prater for Observation. Preliminary diagnosis is Cerebral infarction. Bed requested for Telemetry/MedSurg (observation). Status is Observation. Condition is Stable. Problem is new. Symptoms are unchanged. [facility] 18:10 15:50 01/05/2021 11:47 Hospitalization Ordered by Augie Prater for ph Observation. Preliminary diagnosis is Cerebral infarction. Bed requested for Telemetry/MedSurg (observation). Status is Observation. Condition is Stable. Problem is new. Symptoms are unchanged. dw
--- NOTE | 2021-01-05 11:48 | ER ---
Nurse's Notes [facility] Name: Aime Huffman Age: 60 yrs Sex: Male : 1960 Arrival Date: 01/05/2021 Time: 10:58 Bed 3 Private MD: Guillermo Feng H Diagnosis: Cerebral infarction Presentation: 01/05 11:07 Acuity: ANTOINETTE 2 ca1 11:12 Chief complaint: Patient states: Today around 0900, started losing my balance, I feel ca1 disoriented and confused, I am having trouble speaking. These symptoms also started Tuesday and all day Tuesday. I was okay yesterday Tuesday then it started again this morning. VAN negative. No slurring. No facial droop noted. Coronavirus screen: Client denies travel out of the [place] in the last 14 days. At this time, the client does not indicate any symptoms associated with coronavirus-19. Ebola Screen: Patient negative for fever greater than or equal to 101.5 degrees Fahrenheit, and additional compatible Ebola Virus Disease symptoms Patient denies exposure to infectious person. Patient denies travel to an Ebola-affected area in the 21 days before illness onset. No symptoms or risks identified at this time. Initial Sepsis Screen: Does the patient meet any 2 criteria? No. Patient's initial sepsis screen is negative. Does the patient have a suspected source of infection? No. Patient's initial sepsis screen is negative. Risk Assessment: Do you want to hurt yourself or someone else? Patient reports no desire to harm self or others. Onset of symptoms was January 05, 2021 at 09:00. 11:12 Method Of Arrival: Ambulatory ca1 Triage Assessment: 11:18 The onset of the patients symptoms was January 05, 2021 at 09:00. ca1 Stroke Activation: Symptom onset < 3 hours Physician: Stroke Attending; Name: ; Notified At: ; Arrived At: Physician: Chief Stroke Resident; Name: ; Notified At: ; Arrived At: Physician: Stroke Resident; Name: ; Notified At: ; Arrived At: Physician: ED Attending; Name: ; Notified At: ; Arrived At: Physician: ED Resident; Name: ; Notified At: ; Arrived At: Historical: - Allergies: 11:18 No Known Allergies; ca1 - PMHx: 11:18 Diabetes - NIDDM; Hypertension; ca1 - Immunization history:: Flu vaccine is up to date. - Social history:: Smoking status: Patient denies any tobacco usage or history of. Screenin:25 Abuse screen: Denies threats or abuse. Denies injuries from another. Nutritional ph screening: No deficits noted. Tuberculosis screening: No symptoms or risk factors identified. Fall Risk None identified. Assessment: 11:04 Reassessment: Code stroke called overhead, pt taken to CT via stretcher by triage nurse.ph 11:18 Reassessment: Patient appears in no apparent distress at this time. JESUS Lance at bedside ph to assess pt. General: Appears in no apparent distress. comfortable, well groomed, Behavior is calm, cooperative, appropriate for age. Pain: Denies pain. Neuro: Level of Consciousness is awake, alert, obeys commands, Oriented to person, place, time, situation, Plate Painter are equal bilaterally Moves all extremities. Full function Speech is normal, Facial symmetry appears normal, Pupils are PERRLA, Intact Reports weakness and aphasia [employer]. Cardiovascular: Denies chest pain, Capillary refill < 3 seconds in bilateral fingers Patient's skin is warm and dry. Respiratory: Airway is patent Respiratory effort is even, unlabored. Derm: Skin is intact, is healthy with good turgor, Skin is pink, warm \\T\\ dry. Musculoskeletal: Circulation, motion, and sensation intact. Range of motion: intact in all extremities. 11:20 VAN Scoring: Arm Drift: Patients demonstrates NO arm weakness. Patient is VAN Negative. ph T-PA (Activase) Screening: Contraindications: Patient reports onset of signs and symptoms of stroke greater than 6 hours ago:. 11:35 Patient has been NPO before screening. The patient is alert, and able to follow ph commands. The patient does not exhibit slurred or garbled speech. The patient is not exhibiting difficulty speaking. The patient does not exhibit difficulty understanding words. The patient is able to swallow own secretions with no drooling or need for suction. Patient tolerated one teaspoon of water. No drooling, immediate coughing, gurgling, or clearing of the throat was noted. The patient tolerated 90mL of water. No drooling, immediate coughing, gurgling, or clearing of the throat was noted. The patient passed the bedside swallow screening. Oral medications may be given as ordered. Contact Physician for further diet orders. Provider notified of bedside swallow screening results: Natalio LEE. 11:45 Reassessment: Pt taken for MRI via wheelchair. ph 13:30 Reassessment: Patient appears in no apparent distress at this time. Patient and/or ph family updated on plan of care and expected duration. Pain level reassessed. Patient is alert, oriented x 3, equal unlabored respirations, skin warm/dry/pink. 15:15 Reassessment: Patient appears in no apparent distress at this time. Patient and/or ph family updated on plan of care and expected duration. Pain level reassessed. Patient is alert, oriented x 3, equal unlabored respirations, skin warm/dry/pink. 16:30 Reassessment: Patient appears in no apparent distress at this time. Patient and/or ph family updated on plan of care and expected duration. Pain level reassessed. Patient is alert, oriented x 3, equal unlabored respirations, skin warm/dry/pink. Pt resting comfortably, no complaints at this time. 17:30 Reassessment: Patient appears in no apparent distress at this time. Patient and/or ph family updated on plan of care and expected duration. Pain level reassessed. Patient is alert, oriented x 3, equal unlabored respirations, skin warm/dry/pink. Vital Signs: 11:12 BP 141 / 69; Pulse 85; Resp 16 S; Temp 97.1(TE); Pulse Ox 96% on R/A; Weight 86.18 kg ca1 (R); Height 5 ft. 10 in. (177.80 cm) (R); Pain 0/10; 12:00 BP 137 / 80; Pulse 78; Resp 18; Pulse Ox 99% on R/A; ph 13:30 BP 141 / 72; Pulse 80; Resp 18; Pulse Ox 97% on R/A; ph 14:30 BP 122 / 64; Pulse 73; Resp 16; Pulse Ox 98% on R/A; ph 15:30 BP 140 / 68; Pulse 74; Resp 16; Pulse Ox 97% on R/A; ph 16:30 BP 132 / 70; Pulse 74; Resp 18; Pulse Ox 97% on R/A; ph 17:30 BP 129 / 70; Pulse 75; Resp 16; Temp 97.0; Pulse Ox 98% on R/A; ph 11:12 Body Mass Index 27.26 (86.18 kg, 177.80 cm) ca1 NIH Stroke Scale Scores: 11:20 NIHSS Score: 0 ph 11:20 NIHSS Score: 1 [facility] ED Course: 10:58 Patient arrived in ED. am2 10:58 Guillermo Feng DO is Private Physician. am2 11:08 Triage completed. ca1 11:11 Natalio Briones PA is PHCP. [facility] 11:11 Gerry Fritz MD is Attending Physician. [facility] 11:11 CT Stroke Brain w/o Contrast In Process Unspecified. EDMS 11:15 Initial lab(s) drawn, by clinical lab clerk, sent to lab. Inserted saline lock: 20 gauge in right ph antecubital area, using aseptic technique. Blood collected. 11:18 Arm band placed on right wrist. ca1 11:21 Lesly Rolle, RN is Primary Nurse. ph 11:35 XRAY Chest (1 view) In Process Unspecified. EDMS 11:47 Augie Prater is Hospitalizing Provider. [facility] 11:51 Radiology exam delayed due to pt in MRI--ultrasound to be done after. aa4 11:51 Patient has correct armband on for positive identification. Placed in gown. Bed in low ph position. Call light in reach. Side rails up X 1. monitoring coordinator on. Pulse ox on. NIBP on. Door closed. Noise minimized. Warm blanket given. 11:58 MRI - Brain Wo Cont In Process Unspecified. EDMS 12:31 Carotid Artery Bilateral US In Process Unspecified. EDMS 13:53 COVID-19 : Document "Date of Symptom Onset" if Symptomatic. Sent. [facility] 13:53 COVID swab sent to lab. 5 18:01 No provider procedures requiring assistance completed. Patient admitted, IV remains in ph place. Administered Medications: 11:40 Drug: Aspirin Chewable Tablet 324 mg Route: PO; ph 11:52 Follow up: Response: No adverse reaction ph 11:40 Drug: foLIC Acid 1 mg Route: IVPB; Site: right antecubital; ph 11:52 Follow up: Response: No adverse reaction; IV Status: Completed infusion ph 16:16 Not Given (Other Intervention Used): NS 0.9% 1000 ml IV at 1 bolus Per protocol; 1000 ph mL bolus Outcome: 11:47 Decision to Hospitalize by Provider. jmm 18:00 Admitted to Tele accompanied by tech, via wheelchair, with chart. 18:00 Condition: good 18:00 Instructed on the need for admit. 18:10 Patient left the ED. NIH Stroke Scale - NIH Stroke Score Date: 01/05/2021 Time: 11:20 Total Score = 0 1a. Level of Consciousness (LOC) - 0(Alert) 1b. Level of Consciousness (LOC) (Year \\T\\ Age) - 0(Both) 1c. LOC Commands (Open \\T\\ Closes Eyes/Electrician [employer]) - 0(Both) 2. Best Gaze (Lateral Gaze Paresis) - 0(Normal) 3. Visual Field Loss - 0(No visual loss) 4. Facial Palsy - 0(Normal) 5a. Left Arm: Motor (10-second hold) - 0(No drift) 5b. Right Arm: Motor (10-second hold) - 0(No drift) 6a. Left Leg: Motor (5-second hold - always test supine) - 0(No drift) 6b. Right Leg: Motor (5-second hold - always test supine) - 0(No drift) 7. Limb Ataxia (finger/nose \\T\\ heel/longoria - test with eyes open) - 0(Absent) 8. Sensory Loss (pinprick arms/legs/face) - 0(Normal) 9. Best Language: Aphasia (description/naming/reading) - 0(No aphasia) 10. Dysarthria (speech clarity - read or repeat words) - 0(Normal) 11. Extinction and Inattention (visual/tactile/auditory/spatial/personal) - 0(No abnormality) Initials: NIH Stroke Scale - NIH Stroke Score Date: 01/05/2021 Time: 11:20 Total Score = 1 1a. Level of Consciousness (LOC) - 0(Alert) 1b. Level of Consciousness (LOC) (Year \\T\\ Age) - 0(Both) 1c. LOC Commands (Open \\T\\ Closes Eyes/Electrician [employer]) - 0(Both) 2. Best Gaze (Lateral Gaze Paresis) - 0(Normal) 3. Visual Field Loss - 0(No visual loss) 4. Facial Palsy - 1(Minor Paralysis) 5a. Left Arm: Motor (10-second hold) - 0(No drift) 5b. Right Arm: Motor (10-second hold) - 0(No drift) 6a. Left Leg: Motor (5-second hold - always test supine) - 0(No drift) 6b. Right Leg: Motor (5-second hold - always test supine) - 0(No drift) 7. Limb Ataxia (finger/nose \\T\\ heel/longoria - test with eyes open) - 0(Absent) 8. Sensory Loss (pinprick arms/legs/face) - 0(Normal) 9. Best Language: Aphasia (description/naming/reading) - 0(No aphasia) 10. Dysarthria (speech clarity - read or repeat words) - 0(Normal) 11. Extinction and Inattention (visual/tactile/auditory/spatial/personal) - 0(No abnormality) Initials: [facility] Signatures: Dispatcher [employer] Natalio Shay PA PA jmm Frazier, Amanda aa4 Lesly Rolle RN RN Kendal Harvey [facility] Vilma Beard 2 Shira Hurst RN RN ca1
[2021-01-05 11:55] LABS: ALT/SGPT 24 U/L (12-78); AST/SGOT 11 U/L (15-37); Albumin 4.2 g/dL (3.4-5.0); Alkaline Phosphatase 78 U/L (45-117); BUN Blood Urea Nitrogen 11 mg/dL (7-18); Bicarbonate 29 mmol/L (21-32); Bilirubin Direct 0.2 mg/dL (0-0.2); Bilirubin Total 0.9 mg/dL (0.2-1.0); Glucose Level 138 mg/dL (74-106); NT PRO-BNP 50 pg/mL (<125); Potassium 4.5 mmol/L (3.5-5.1); Protein, Total 7.7 g/dL (6.4-8.2); Sodium Level 142 mmol/L (136-145); Troponin (Emerg Dept Use Only) < 0.02 ng/mL (0.0-0.045)
--- NOTE | 2021-01-05 12:08 | RAD REPORT ---
EXAM DESCRIPTION: RAD - Chest Single View - 01/05/2021 11:35 am CLINICAL HISTORY: weakness, altered mental status, hypertension COMPARISON: December 03, 2020 TECHNIQUE: AP portable chest image was obtained 01/05/2021 11:35 am . FINDINGS: No peripheral mass consolidation. Interstitial pattern is similar to comparison. Cardiac s ilhouette is enlarged, slightly increased from comparison. No acute vascular engorgement. No measurab le pleural effusion and no pneumothorax. No acute bony abnormality seen. No acute aortic findings chhaya pected. IMPRESSION: No acute lung parenchymal process seen. Mild cardiomegaly similar or slightly increased from comparison. No acute failure or volume overload suspected.
--- NOTE | 2021-01-05 12:39 | RAD REPORT ---
EXAM DESCRIPTION: US - CP - 01/05/2021 12:31 pm CLINICAL HISTORY: CVA COMPARISON: MRA Neck W/Wo Cont dated 12/04/2020 TECHNIQUE: Real-time sonographic evaluation of bilateral carotid and vertebral systems was performed . Jackson scale and Doppler interrogation were performed with waveform tracing bilaterally. FINDINGS: Normal high resistance waveforms are noted in both external carotid arteries. The common c arotid arteries and internal carotid arteries show normal low resistance waveforms. Calcified plaques seen in the proximal aspect of the right internal carotid artery. No significant poonam shae narrowing identifiable. No other significant plaquing changes seen. Peak systolic and end diast olic velocity values and the ICA/CCA ratios are in the non-hemodynamically significant range. Antegrade flow seen in both vertebral arteries. Velocity values and ratios were recorded and are retained in the patient's imaging records. IMPRESSION: Calcified plaquing changes in the right internal carotid artery without significant daniele nal narrowing. Remainder the examination shows no significant plaquing change and no hemodynamically significant lamont noses.
--- NOTE | 2021-01-05 12:45 | P.HP ---
Certification for Inpatient Patient admitted to: Observation With expected LOS: <2 Midnights Practitioner: I am a practitioner with admitting privileges, knowledge of patient current condition, hospital course, and medical plan of care. Services: Services provided to patient in accordance with Admission requirements found in Title 42 Section 412.3 of the Code of Federal Regulations Patient History Date of Service: 01/05/21 Reason for admission: Right arm weakness History of Present Illness: 60-year-old gentleman with a history of diabetes recently hospitalized for dysarthria and diagnosed with acute CVA involving the left basal ganglia 1 month ago presented emergency department with a complaint of right sided weakness, more pronounced in the right arm, clumsiness in the right hand and unsteady gait. CT head done in the emergency department suggest acute versus subacute CVA in the periventricular deep white matter in the left frontal lobe extending to the left basal ganglia. EKG shows sinus rhythm. Initial troponin negative. Patient diagnosis acute CVA and hospitalized for further management. Allergies No Known Allergies Allergy (Verified 12/03/20 14:03) Home Medications: Metformin ER [Glucophage ER*] 1,000 mg PO DAILY 12/03/20 Nebivolol HCl [Bystolic*] 20 mg PO DAILY 12/03/20 Aspirin [Aspirin EC 81 MG] 162 mg PO DAILY #60 tablet. 12/04/20 Atorvastatin Calcium [Lipitor] 40 mg PO BEDTIME #30 tab 12/04/20 Clopidogrel Bisulfate [Plavix] 75 mg PO DAILY #30 tablet 12/04/20 Folic Acid 1 mg PO DAILY #30 tablet 12/04/20 - Past Medical/Surgical History Diabetic: Yes -: Hypertension -: Diabetes -: Hyperlipidemia -: Hypertension -: Diabetes - Family History Mother -: Diabetes - Social History Alcohol use: Yes CD- Drugs: No Caffeine use: Yes Review of Systems Other: Except as documented, all other systems reviewed and negative. Physical Examination - Physical Exam General: Alert, In no apparent distress, Oriented x3 HEENT: Atraumatic, Normocephalic, PERRLA, Mucous membr. moist/pink, EOMI, Sclerae nonicteric Neck: Supple, JVD not distended, No Thyromegaly Respiratory: Clear to auscultation bilaterally, Normal air movement Cardiovascular: No edema, Regular rate/rhythm, Normal S1 S2 Gastrointestinal: Normal bowel sounds, Soft and benign, Non-distended, No tenderness Musculoskeletal: No swelling, No tenderness Integumentary: No rashes, No erythema Neurological: Normal speech, Normal strength at 5/5 x4 extr, Cranial nerves 3-12 intact - Studies Laboratory Data (last 24 hrs) 01/05/21 11:14: PT 10.6, INR 0.92 01/05/21 11:14: WBC 5.90, Hgb 13.2 L, Hct 40.3, Plt Count 216 01/05/21 11:14: Sodium 142, Potassium 4.5, BUN 11, Creatinine 0.77, Glucose 138 H, Magnesium 2.0, Total Bilirubin 0.9, AST 11 L, ALT 24, Alkaline Phosphatase 78 Assessment and Plan - Problems (Diagnosis) (1) Acute CVA (cerebrovascular accident) Current Visit: No Status: Acute (2) DM type 2 (diabetes mellitus, type 2) Current Visit: No Status: Acute (3) Hypertension Current Visit: No Status: Acute - Plan Place under observation. Patient include noncompliant with medications. Start aspirin 162 mg daily. Add Plavix Folic acid, Lipitor. Neurology Consult. Permissive hypertension. PT evaluation given unsteady. No problem with speech or swallow. Insulin sliding scale for glucose management. Patient is COVID negative. He was positive 1 month ago. - Advance Directives Does patient have a Living Will: No Does patient have a Durable POA for Healthcare: No
--- NOTE | 2021-01-05 14:01 | RAD REPORT ---
EXAM DESCRIPTION: MRI - Brain Wo Cont - 01/05/2021 1:38 pm CLINICAL HISTORY: right sided weakness COMPARISON: Brain W/Wo Cont dated 12/04/2020; Ct Stroke Brain Wo Cont dated 01/05/2021T Stroke protoc ol study January 05 TECHNIQUE: Sagittal T1-weighted images were obtained along with axial PD, heavily T2-weighted and T2 -FLAIR images. Axial DWI and ADC mapping sequences were also obtained along with coronal heavily T2-w eighted images. FINDINGS: At the time of the Stroke protocol image review and telephone report to the emergency depa rtment, the patient's prior imaging study and history or not available. The signal abnormality in the deep left frontal lobe periventricular white matter that extends inferi cam along the lateral margin of the basal ganglia into the external capsule was present on the MRI imaging as an area of acute infarction. There is currently scattered T1 hyperintense signal c ommonly seen with aging of a CVA. Diffusion-weighted imaging shows hypointense and hyperintense signa l. ADC mapping shows a hyperintense signal pattern. No definitive acute stroke component seen. There is hyperintense T2/IR signal in this area of aging infarction. Signal pattern is as expected for 1 mo nth aging of an infarction. No mass effect or edema. Minimal chronic ischemic changes are present. Atrophy is minimal as well. Ventricles are normal. Ther e is no edema or shift of midline structures. No extra-axial fluid collections. Jackson-matter/white mat ter junction is preserved. Signal voids are seen as a normal finding in the major intracranial vessel s. Mastoid air cells and paranasal sinuses are clear. IMPRESSION: An acute infarction is not identified and no suspicious hemorrhage or mass identifiable. Signal abnormality is present in the deep periventricular white matter left frontal lobe extending in feriorly into the lateral aspect of the basal ganglia and external capsule. This is the correlate to the recent CT finding. Current signal abnormality represents the expected aging of the infarction seen 1 month earlier.
[2021-01-05] MEDS ORDERED: ONDANSETRON 4 MG/2 ML VIAL IV PRN (19:15)
[2021-01-05] MEDS ORDERED: ACETAMINOPHEN 500 MG TAB PO PRN (19:15)
[2021-01-05] MEDS ORDERED: GLUCAGON 1 MG/VIAL IM PRN (19:49)
[2021-01-05] MEDS ORDERED: D50W 25 GM/50 ML SYRINGE IV PRN (19:49)
[2021-01-05] MEDS: INSULIN -REGULAR HUMAN 50 UNIT/0.5 ML ML SQ SCH (20:59)
[2021-01-05] MEDS: NA CHLORIDE 0.9% 1,000 ML IV SCH (20:59)
[2021-01-05] MEDS ORDERED: ATORVASTATIN 40 MG TAB PO SCH (21:00)
[2021-01-05] MEDS ORDERED: ATORVASTATIN 20 MG TAB PO SCH (21:00)
[2021-01-05 22:15] VITALS: BMI 27.1
[2021-01-06 04:14] LABS: Absolute Lymphocytes (CBC) 2.4 K/uL (0.7-4.9); Basophils % 0.7 % (0-1.3); Hematocrit 37.2 % (39.6-49.0); Lymphocytes % 45.7 % (15.3-44.8); MPV 8.3 fL (7.6-11.3); RBC Red Blood Cell Count 4.24 M/uL (4.33-5.43)
[2021-01-06 04:40] LABS: BUN Blood Urea Nitrogen 12 mg/dL (7-18); Bicarbonate 30 mmol/L (21-32); Glucose Level 117 mg/dL (74-106); HDL Cholesterol 43 mg/dL (40-60); LDL Cholesterol, Calculated 54 (<130); Magnesium 2.2 mg/dL (1.8-2.4); Phosphorus 4.2 mg/dL (2.5-4.9); Potassium 4.2 mmol/L (3.5-5.1); Sodium Level 144 mmol/L (136-145)
[2021-01-06] MEDS: INSULIN -REGULAR HUMAN 50 UNIT/0.5 ML ML SQ SCH ×2 (07:30→11:30)
[2021-01-06 08:07] VITALS: O2SAT 96
[2021-01-06] MEDS ORDERED: ENOXAPARIN 40 MG/0.4 ML SQ SCH (09:00)
[2021-01-06] MEDS ORDERED: CLOPIDOGREL 75 MG TABLET PO SCH (09:00)
[2021-01-06] MEDS ORDERED: FOLIC ACID 1 MG TABLET PO SCH (09:00)
[2021-01-06] MEDS ORDERED: ASPIRIN EC 81 MG TAB PO SCH (09:00)
[2021-01-06] MEDS: NA CHLORIDE 0.9% 1,000 ML IV SCH (12:01)
[2021-01-06 16:50] VITALS: BP 148/73; TEMP 97.1
--- NOTE | 2021-01-06 20:25 | P.DS ---
Admission Date: 01/05/21 Discharge Date: 01/06/21 Disposition: ROUTINE DISCHARGE Discharge Condition: GOOD Reason for Admission: Right arm weakness Consultations: Neurology -Dr. Patel Procedures: CXR (01/05): No acute lung parenchymal process seen. Mild cardiomegaly similar or slightly increased from comparison. No acute failure or volume overload suspected. CT Brain (01/05): : Nonhemorrhagic acute/ subacute CVA deep periventricular white matter left frontal lobe extending to the basal ganglia. External capsular and insular cortex involvement may be present as well. MRI Brain (01/05): An acute infarction is not identified and no suspicious hemorrhage or mass identifiable. Signal abnormality is present in the deep periventricular white matter left frontal lobe extending inferiorly into the lateral aspect of the basal ganglia and external capsule. This is the correlate to the recent CT finding. Current signal abnormality represents the expected aging of the infarction seen 1 month earlier. Carotid Artery U/S (01/05): Calcified plaquing changes in the right internal carotid artery without significant luminal narrowing. Remainder the examination shows no significant plaquing change and no hemodynamically significant stenoses. Problem List: Subacute CVA (cerebrovascular accident) DM type 2 (diabetes mellitus, type 2) Hypertension Brief History of Present Illness: 60-year-old gentleman with a history of diabetes recently hospitalized for dysarthria and diagnosed with acute CVA involving the left basal ganglia 1 month ago presented emergency department with a complaint of right sided weakness, more pronounced in the right arm, clumsiness in the right hand and unsteady gait. CT head done in the emergency department suggest acute versus subacute CVA in the periventricular deep white matter in the left frontal lobe extending to the left basal ganglia. EKG shows sinus rhythm. Initial troponin negative. Patient diagnosis acute CVA and hospitalized for further management. Hospital Course: Patient's symptoms improved without much intervention. He was restarted on his home medications. PT evaluated patient and he did well, not needing any assistance. Neurology was consulted and felt these symptoms were within the expected range in the subacute period. MRI was negative for acute stroke. Patient was feeling well, tolerated PT without issue and was discharged home. He reported running out of medications and he was given a 1 month prescription for most of his medications. Vital Signs/Physical Exam: Physical Exam General: Alert, In no apparent distress, Oriented x3 HEENT: Atraumatic, Normocephalic, PERRLA, Mucous membr. moist/pink, EOMI, Sclerae nonicteric Respiratory: Clear to auscultation bilaterally, Normal air movement Cardiovascular: No edema, Regular rate/rhythm, Normal S1 S2 Gastrointestinal: Normal bowel sounds, Soft and benign, Non-distended, No tenderness Musculoskeletal: No swelling, No tenderness Integumentary: No rashes, No erythema Neurological: Normal speech, Normal strength at 5/5 x4 extr, Cranial nerves 3-12 intact, symmetric [id number], [id number] testing Temp Pulse Resp BP Pulse Ox 97.1 F 63 16 148/73 H 96 01/06/21 16:00 01/06/21 16:00 01/06/21 16:00 01/06/21 16:00 01/06/21 16:00 Laboratory Data at Discharge: WBC 5.30 K/uL (4.3-10.9) 01/06/21 03:11 Hgb 12.6 g/dL (13.6-17.9) L 01/06/21 03:11 Hct 37.2 % (39.6-49.0) L 01/06/21 03:11 Plt Count 195 K/uL (152-406) 01/06/21 03:11 PT 10.6 SECONDS (9.5-12.5) 01/05/21 11:14 INR 0.92 01/05/21 11:14 Sodium 144 mmol/L (136-145) 01/06/21 03:11 Potassium 4.2 mmol/L (3.5-5.1) 01/06/21 03:11 BUN 12 mg/dL (7-18) 01/06/21 03:11 Creatinine 0.74 mg/dL (0.55-1.3) 01/06/21 03:11 Glucose 117 mg/dL (74-106) H 01/06/21 03:11 Phosphorus 4.2 mg/dL (2.5-4.9) 01/06/21 03:11 Magnesium 2.2 mg/dL (1.8-2.4) 01/06/21 03:11 Total Bilirubin 0.9 mg/dL (0.2-1.0) 01/05/21 11:14 AST 11 U/L (15-37) L 01/05/21 11:14 ALT 24 U/L (12-78) 01/05/21 11:14 Alkaline Phosphatase 78 U/L (45-117) 01/05/21 11:14 Triglycerides 148 mg/dL (<150) 01/06/21 03:11 Cholesterol 127 mg/dL (<200) 01/06/21 03:11 HDL Cholesterol 43 mg/dL (40-60) 01/06/21 03:11 Cholesterol/HDL Ratio 2.95 01/06/21 03:11 Home Medications: Aspirin [Aspirin EC 81 MG] 162 mg PO DAILY #60 tablet.dr 12/04/20 Folic Acid 1 mg PO DAILY #30 tablet 12/04/20 Atorvastatin Calcium [Lipitor] 40 mg PO BEDTIME 30 Days #30 tab 01/06/21 Clopidogrel Bisulfate [Plavix*] 75 mg PO DAILY 30 Days #30 tablet 01/06/21 Fenofibrate 160 mg PO DAILY 01/06/21 Metformin ER [Glucophage ER*] 1,000 mg PO BID 30 Days #120 tab.sa 01/06/21 Nebivolol HCl [Bystolic*] 20 mg PO DAILY 30 Days #30 tablet 01/06/21 New Medications: Nebivolol HCl [Bystolic*] 20 mg PO DAILY 30 Days #30 tablet Metformin ER [Glucophage ER*] 1,000 mg PO BID 30 Days #120 tab.sa Atorvastatin Calcium [Lipitor] 40 mg PO BEDTIME 30 Days #30 tab Clopidogrel Bisulfate [Plavix*] 75 mg PO DAILY 30 Days #30 tablet Physician Discharge Instructions: Your symptoms are due to your stroke you had last month. There was no change seen on MRI. Please resume your medications as prescribed. Follow up with Dr. Patel in ~1 month. Diet: ADA Activity: Ad marcelo Followup: Urbano Patel MD [ASSOCIATE-ACTIVE - CAN ADMIT] - (neurologist- follow up in 1 month, call to schedule an appointment ) Ping GARCIA,Giullermo Drake DO [Primary Care Provider] - 1-2 Weeks (call to schedule an appointment ) Time spent managing pt's care (in minutes): 35
--- NOTE | 2021-01-06 20:55 | CON ---
Reason For Consultation: Consultation called because of right-sided weakness and possible stroke. History Of Present Illness: Mr. Huffman is a 60-year-old patient with multiple stroke risk factors inc luding a recent stroke, diabetes mellitus, hypertension, and dyslipidemia, who comes in with some wor sening dysarthria and perhaps more right-sided weakness. The patient's stroke was earlier this year about 4 weeks ago. His brain CT scan showed an acute to subacute stroke in the periventricular white matter in the left frontal lobe extending into the basal ganglia. There was also involvement of ext ernal capsule and insular cortex. His brain MRI showed the stroke to be chronic and not acute. Ther e was no acute finding on the brain MRI, but first chronic stroke was seen in the left frontal lobe e xtending inferiorly to the lateral aspect of the left basal ganglia and external capsule. Regarding the patient's deficits, he actually reports coming into the hospital and believes that his symptoms h ave returned to baseline since his admission on the . It should be noted that the radiologist co mmented on the MRI that the expected findings of a stroke 1 month earlier are consistent in the new M RI, nothing unexpected was seen and no hemorrhagic conversion was seen. Repeat carotid artery ultras ound as previously showed calcified plaquing in the right internal carotid without evidence of lumina l narrowing and no hemodynamically significant stenosis was identified. Laboratory Studies: Complete blood count and differential to be essentially unremarkable. Coagulati on panel unremarkable. Chemistries remarkable for glucose ranged from 99 to 154. Normal calcium, ph osphorus, magnesium. His LDL cholesterol is 54, HDL cholesterol 43, and total cholesterol 127. The patient's COVID-19 test was negative. Past Medical History: As noted. Allergies: NO KNOWN DRUG ALLERGIES. Medications: At home, metformin 1000 mg daily, Bystolic 20 mg daily, aspirin 162 mg daily, Lipitor 4 0 mg at bedtime, Plavix 75 mg daily, folic acid 1 mg daily. It should be noted the patient was actua lly poorly compliant with his medications after leaving the hospital and any of them may have contrib uted to his worsening symptoms, although again no new stroke seen. Family History: His mother has diabetes. Social History: Admits to alcohol and caffeinated beverage use. No cigarette use. Review of Systems: Aside from mentioned above, negative. Physical Examination: Vital Signs: Blood pressure 148/73, pulse 62, respiratory rate 16, temperature 97.1, oxygen saturati on 96% on room air. Weight 189 pounds, height 5 feet 10 inches, BMI over 29. General: Mr. Huffman is resting comfortably in bed. He actually has no acute distress. HEENT: He is normocephalic. He is atraumatic. Sclerae anicteric. Oropharynx is pink and moist. Neck: Supple. Chest: Clear. Heart: Regular. Extremities: No significant edema, clubbing, or cyanosis. Neurological: Slight decrease of the right nasolabial fold with good excursions bilaterally. Sensat ion slightly decreased on the right compared to the left upper and lower face and no other findings i n terms of cranial nerves. Motor examination difficult to appreciate, significant weakness in the ri ght upper extremity, but perhaps maybe 5-/5 proximally and distally compared to the left side, 5/5 ri ght lower extremity. Again, difficult to appreciate any weakness, likely 5-/5 in the right lower ext remity compared to left side. Sensation intact in the right and left upper and lower extremity. Ammonia Technician rdination intact in the right and left upper extremity. Gait, he has good stance, stride, and arm sw ing. Reflexes are symmetric in the upper and lower extremities. Assessment: Mr. Huffman is a 60-year-old patient with a subacute stroke in the left basal ganglia inte rnal and external capsular area producing some residual right face, arm, and leg numbness and weaknes s, that he has recovered very well so far. He again has multiple stroke risk factors, hypertension, diabetes, dyslipidemia, and has been poorly compliant with medications. He has no evidence of an inf ection and his cholesterol panel is now doing very well. Blood sugars have improved. Plan: 1.The patient is instructed on the importance of taking all his medications as prescribed. 2.He is instructed on the importance of regular exercise, modifying his diet and hydration with wate r and cut back sugary, carbonated, caffeinated, or alcoholic drinks. 3.After discharge, he may benefit from outpatient physical therapy, perhaps he can be able to return to work this coming Tuesday, today is Tuesday. 4.He may discharge home today. ROHAN/GARRYL Voice ID: [id number] Report ID: [id number]
--- NOTE | 2021-01-07 04:38 | EKG ---
Test Date: 2021-01-05 Test Time: 10:42:13 Meal Grinder Tender: PH MEASUREMENT RESULTS: Intervals: Rate: 55 LA: 176 QRSD: 102 QT: 410 QTc: 392 [place]: P: 29 LA: 176 QRS: -10 T: 30 INTERPRETIVE STATEMENTS: Sinus bradycardia Otherwise normal ECG Compared to ECG 12/03/2020 08:43:02 No significant changes Electronically Signed On 01-07-21 04:32:59 CDT by Kelby Kurtz
--- NOTE | 2021-01-07 08:26 | ECHO ---
HEIGHT: 5 ft 10 in WEIGHT: 189 lb 9.561 oz DATE OF STUDY: 01/06/[address]: CHARO NARANJO 2-DIMENSIONAL: YES M.MODE: YES DOPPLER: NO COLOR FLOW: NO TDS: NO PORTABLE: NO DEFINITY: NO BUBBLE STUDY: NO DIAGNOSIS: CEREBRAL VASCULAR ACCIDENT CARDIAC HISTORY: CATHERIZATION: NO SURGERY: NO PROSTHETIC VALVE: NO PACEMAKER: NO MEASUREMENTS (cm) DIASTOLIC (NORMALS) SYSTOLIC (NORMALS) IVSd 1.2 (0.6-1.2) LA Diam 3.1 (1.9-4.0) LVEF 68% LVIDd 4.3 (3.5-5.7) LVIDs 2.7 (2.0-3.5) %FS 38% LVPWd 1.2 (0.6-1.2) Ao Diam 3.0 (2.0-3.7) 2 DIMENSIONAL ASSESSMENT: RIGHT ATRIUM: NORMAL LEFT ATRIUM: NORMAL RIGHT VENTRICLE: NORMAL LEFT VENTRICLE: NORMAL TRICUSPID VALVE: NORMAL MITRAL VALVE: NORMAL PULMONIC VALVE: NORMAL AORTIC VALVE: NORMAL PERICARDIAL EFFUSION: NONE AORTIC ROOT: NORMAL LEFT VENTRICULAR WALL MOTION: NORMAL DOPPLER/COLOR FLOW: NOT REQUESTED. COMMENTS: NORMAL 2D ECHOCARDIOGRAM. NO THROMBUS. NO VEGETATION. TECHNOLOGIST: Eleir VILLALTA
== END 2021-01-06 16:53 | disposition home or self-care (01) ==
LOC: ER 10:57 → ERHOLD 12:34 → 4TH 16:47
PROVIDERS: ADMIT Internal Medicine; ATTEND Hospitalist
DX: I63.9 Cerebral infarction, unspecified (principal); E11.9 Type 2 diabetes mellitus without complications; I10 Essential (primary) hypertension; E78.5 Hyperlipidemia, unspecified; Z20.822 Contact with and (suspected) exposure to COVID-19; Z79.84 Long term (current) use of oral hypoglycemic drugs
CPT/HCPCS: 93307; 93005; 85025 ×2; 80048 ×2; 36415; 83735 ×2; 84100; 85610; 80061; 82947 ×5; 80076; 85652; 84443; 84484; 83880; 70450; 71045; 93880; 70551; 97161; U0003; J1650; J7030 ×2; 96374; 99285; G0378